=== PATIENT | male | born 1995 | race American Indian/Alaskan Native ===

== ENCOUNTER 2016-09-21 14:12 | Emergency (ER) | payer SELFPAY ==
[2016-09-21 15:17] VITALS: BP 141/86
[2016-09-21 15:48] LABS: Basophils % (Auto) 0.5 % (0.0-1.8); Eosinophils % (Auto) 1.3 % (0.0-4.3); Hematocrit 45.6 % (35.5-45.6); Hemoglobin 14.9 gm/dl (11.8-15.2); Mean Corpuscular HGB Conc 33 % (32-34); Mean Corpuscular Hemoglobin 29 pg (28-32); Mean Corpuscular Volume 89 fl (84-94); Platelet Count 180 K/mm3 (140-440); Red Blood Count 5.14 M/mm3 (3.65-5.03); Red Cell Distribution Width 13.6 % (13.2-15.2); White Blood Count 4.3 K/mm3 (4.5-11.0)
[2016-09-21 16:06] LABS: Creatine Kinase MB 1.5 ng/mL (0.0-4.0)
[2016-09-21 16:13] LABS: Anion Gap 18 mmol/L; BUN/Creatinine Ratio 13.84; Blood Urea Nitrogen 18 mg/dL (9-20); Calcium 9.3 mg/dL (8.4-10.2); Carbon Dioxide 28 mmol/L (22-30); Chloride 100.5 mmol/L (98-107); Creatine Kinase 319 units/L (55-170); Glucose 92 mg/dL (75-100); Lipase 21 units/L (13-60); Sodium 142 mmol/L (137-145)
--- NOTE | 2016-09-21 19:37 | Emergency Department Report ---
ED Chest Pain HPI - General Chief Complaint: Chest Pain Stated Complaint: CHEST PAIN Time Seen by Provider: 09/21/16 15:28 Source: patient, old records reviewed Mode of arrival: Ambulatory Limitations: No Limitations - History of Present Illness Initial Comments: 21-year-old male past medical history hypertension presents with complaint of intermittent left-sided chest pain nonradiating multiple episodes over last several months. Patient states that chest pain is sharp and last for a few seconds to a few minutes at a time, experiences and on near daily basis. No significant correlation with exertion, occasional palpitations, denies any diaphoresis or dyspnea associated with episodes. Denies any nausea vomiting fever chills. States he has mild epigastric pain occasionally. As per patient during clinical interview his father had heart attack in mid 20s. Denies smoking drinking or any drug use. Has not had any cardiology follow-up for this issue, came to ED several months ago complaining of similar chest pain. Onset: during rest, during exertion Pain Location: left chest Severity: moderate Severity scale (0 -10): 7 Quality: aching Consistency: constant Improves With: nothing Worsens With: exertion - Related Data Previous Rx's Medication Instructions Recorded Last Taken Type Amoxicillin [Trimox CAP] 500 mg PO Q8H #21 capsule 03/31/14 Unknown Rx Benzonatate [Tessalon Perles] 100 mg PO Q8HR PRN #21 capsule 03/31/14 Unknown Rx Promethazine [Phenergan] 25 mg PO Q6H PRN #10 tablet 03/31/14 Unknown Rx Ranitidine HCl [Ranitidine] 150 mg PO Q12H #60 tablet 03/31/14 Unknown Rx Ibuprofen [Motrin] 600 mg PO Q8H PRN #60 tablet 02/04/15 Unknown Rx traMADol [Ultram] 50 mg PO Q6HR PRN #14 tablet 02/04/15 Unknown Rx Acetaminophen/Codeine [Tylenol #3] 1 tab PO Q6H PRN #20 tab 08/02/15 Unknown Rx Ibuprofen [Motrin 600 MG tab] 600 mg PO Q8H PRN #30 tablet 08/02/15 Unknown Rx Ondansetron [Zofran Odt] 4 mg PO Q8H PRN #15 tab.rapdis 08/02/15 Unknown Rx Allergies Allergy/AdvReac Type Severity Reaction Status Date / Time No Known Allergies Allergy Verified 08/02/15 01:22 WILL score - Will Score Age > 65: (0) No Aspirin use within the Past 7 Days: (0) No 3 or more CAD Risk Factors: (0) No 2 or more Angina events in past 24 hrs: (1) Yes Known CAD with more than 50% Stenosis: (0) No Elevated Cardiac Markers: (0) No ST Deviation Greater than 0.5mm: (0) No WILL Score: 1 ED Review of Systems ROS: Stated complaint: CHEST PAIN Other details as noted in HPI ED Past Medical Hx - Past Medical History Hx Hypertension: Yes Additional medical history: denies - Surgical History Additional Surgical History: denies - Social History Smoking Status: Never Smoker Substance Use Type: Alcohol - Medications Home Medications: Home Medications Medication Instructions Recorded Confirmed Last Taken Type Amoxicillin [Trimox CAP] 500 mg PO Q8H #21 capsule 03/31/14 Unknown Rx Benzonatate [Tessalon Perles] 100 mg PO Q8HR PRN #21 capsule 03/31/14 Unknown Rx Promethazine [Phenergan] 25 mg PO Q6H PRN #10 tablet 03/31/14 Unknown Rx Ranitidine HCl [Ranitidine] 150 mg PO Q12H #60 tablet 03/31/14 Unknown Rx Ibuprofen [Motrin] 600 mg PO Q8H PRN #60 tablet 02/04/15 Unknown Rx traMADol [Ultram] 50 mg PO Q6HR PRN #14 tablet 02/04/15 Unknown Rx Acetaminophen/Codeine [Tylenol #3] 1 tab PO Q6H PRN #20 tab 08/02/15 Unknown Rx Ibuprofen [Motrin 600 MG tab] 600 mg PO Q8H PRN #30 tablet 08/02/15 Unknown Rx Ondansetron [Zofran Odt] 4 mg PO Q8H PRN #15 tab.rapdis 08/02/15 Unknown Rx ED Physical Exam - General Limitations: No Limitations General appearance: alert, in no apparent distress - Head Head exam: Present: atraumatic, normocephalic - Eye Eye exam: Present: normal appearance, PERRL, EOMI - ENT ENT exam: Present: mucous membranes moist - Neck Neck exam: Present: normal inspection - Respiratory Respiratory exam: Present: normal lung sounds bilaterally. Absent: respiratory distress - Cardiovascular Cardiovascular Exam: Present: regular rate, normal rhythm. Absent: systolic murmur, diastolic murmur, rubs, gallop - GI/Abdominal GI/Abdominal exam: Present: soft, normal bowel sounds - Rectal Rectal exam: Present: deferred - Extremities Exam Extremities exam: Present: normal inspection - Back Exam Back exam: Present: normal inspection - Neurological Exam Neurological exam: Present: alert, oriented X3 - Psychiatric Psychiatric exam: Present: normal affect, normal mood - Skin Skin exam: Present: warm, dry, intact, normal color. Absent: rash ED Course Vital Signs 09/21/16 15:02 Temperature 9.5 F L Pulse Rate 58 L Respiratory 16 Rate Blood Pressure 141/86 O2 Sat by Pulse 98 Oximetry ED Medical Decision Making - Lab Data Result diagrams: 09/21/16 15:40 09/21/16 15:40 - Medical Decision Making A/P: Chest pain 1-troponin negative 2, CK-MB negative, EKG sinus rate of 58 2-give patient follow up with cardiology. I emphasized the importance of cardiology follow-up 3-case discussed with Dr. Tiara Araiza score for PE Clinical Signs and Symptoms of DVTNO+3 PE Is #1 Diagnosis, or Equally LikelyNO+3 Heart Rate > 100NO+1.5 Immobilization at least 3 days, or Surgery in the Previous 4 weeksNO+1.5 Previous, objectively diagnosed PE or DVTNO+1.5 HemoptysisNO+1 Malignancy w/ Treatment within 6 mo, or palliativeNO 0.0points Low risk group: 1.3% chance of PE in an ED population. Another study assigned scores 4 as 'PE Unlikely' and had a 3% incidence of PE. PERC RULE: Age 50NO HR 100NO O2 Sat on Room Air < 95%NO Prior History of Venous ThromboembolismNO Trauma or Surgery within 4 weeksNO HemoptysisNO Exogenous EstrogenNO Unilateral Leg SwellingNO No need for further workup, as <2% chance of PE. If no criteria are positive and clinician's pre-test probability is <15%, PERC Rule criteria are satisfied. HEART score: 2 points Low Score (0-3 points), risk of MACE of 0.9-1.7%. WILL score 1 Critical care attestation.: If time is entered above; I have spent that time in minutes in the direct care of this critically ill patient, excluding procedure time. ED Disposition Clinical Impression: Chest pain Qualifiers: Chest pain type: other chest pain Qualified Code(s): R07.89 - Other chest pain Disposition: DISCHARGED TO HOME OR SELFCARE Is pt being admited?: No Does the pt Need Aspirin: No Condition: Stable Instructions: Angina (ED), Chest Pain (ED) Referrals: PRIMARY CARE,MD [Primary Care Provider] - 3-5 Days JESIKA BEAUCHAMP MD [Staff Physician] - 3-5 Days CARLOS RAMSEY MD [Staff Physician] - 3-5 Days Forms: Work/School Release Form(ED)
[2016-09-21] MEDS ORDERED: BABY ASPIRIN PO ONE (20:57)
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
== END 2016-09-21 21:30 | disposition home or self-care (01) ==
LOC: ED 14:12
DX: R07.89 Other chest pain (principal); I10 Essential (primary) hypertension
CPT/HCPCS: 36415; 71020; 80048; 82550; 82553; 83690; 84484; 85025; 93005; 93010

== ENCOUNTER 2021-08-10 00:49 | Emergency (ER) | payer OTHER ==
[2021-08-10 00:54] VITALS: BP 125/73
[2021-08-10] MEDS ORDERED: IBUPROFEN 600 MG TAB PO ONE (01:34)
[2021-08-10] MEDS ORDERED: ACETAMINOPHEN 500 MG TAB PO ONE (01:34)
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
== END 2021-08-10 03:31 | disposition home or self-care (01) ==
LOC: ED 00:49
DX: S53.402A Unspecified sprain of left elbow, initial encounter (principal); S83.91XA Sprain of unspecified site of right knee, initial encounter; S20.219A Contusion of unspecified front wall of thorax, initial encounter; M62.830 Muscle spasm of back; I10 Essential (primary) hypertension; X58.XXXA Exposure to other specified factors, initial encounter; Y93.89 Activity, other specified; Y92.89 Other specified places as the place of occurrence of the external cause; Y99.8 Other external cause status
CPT/HCPCS: 72072; 99283

== ENCOUNTER 2021-10-17 12:19 | Emergency (ER) | payer SELFPAY ==
[2021-10-17] MEDS ORDERED: SODIUM CHLORIDE 0.9% 1000 ML 1,000 ML IV ONE (12:25)
[2021-10-17] MEDS ORDERED: METOCLOPRAMIDE 10 MG/2 ML INJ IV ONE (12:25)
[2021-10-17 12:33] VITALS: BP 137/77
--- NOTE | 2021-10-17 13:10 | Emergency Department Report ---
ED N/V/D HPI - General Chief complaint: Nausea/Vomiting/Diarrhea Stated complaint: NAUSEA,VOMITTING X1DAY Time Seen by Provider: 10/17/21 12:24 Source: patient Mode of arrival: Stretcher Limitations: No Limitations - History of Present Illness Initial comments: Patient presents with nausea, vomiting, and diarrhea. He came in by ambulance. His symptoms started this morning. He has no hemoptysis. There is no melanotic stool. He states that he had vomited "flecks of blood." He states his stomach just does not feel right. It started this morning. He has not eaten anything that tasted bad or unusual. There is no trauma. Has no travel. Has had no antibiotic exposure. He is not sure what caused it. He has no real pain associated with this. He is trying to drink water and it has not stayed down. - Related Data Previous Rx's Medication Instructions Recorded Last Taken Type raNITIdine HCL [Ranitidine] 150 mg PO Q12H #60 tablet 03/31/14 Unknown Rx Ondansetron [Zofran Odt] 4 mg PO Q8H PRN #15 tab.rapdis 08/02/15 Unknown Rx Promethazine [Phenergan] 25 mg PO Q6H PRN #10 tablet 10/17/21 Unknown Rx Allergies Allergy/AdvReac Type Severity Reaction Status Date / Time No Known Allergies Allergy Verified 08/02/15 01:22 ED Review of Systems ROS: Stated complaint: NAUSEA,VOMITTING X1DAY Other details as noted in HPI Comment: All other systems reviewed and negative Constitutional: denies: fever Eyes: denies: eye pain ENT: denies: throat pain Respiratory: denies: cough Cardiovascular: denies: chest pain Endocrine: denies: unexplained weight loss Gastrointestinal: as per HPI Genitourinary: denies: dysuria Musculoskeletal: denies: back pain Skin: denies: rash Neurological: denies: headache Hematological/Lymphatic: denies: easy bruising ED Past Medical Hx - Past Medical History Hx Hypertension: Yes Additional medical history: denies - Surgical History Additional Surgical History: denies - Family History Family history: hypertension - Social History Smoking Status: Never Smoker Substance Use Type: Alcohol - Medications Home Medications: Home Medications Medication Instructions Recorded Confirmed Last Taken Type raNITIdine HCL [Ranitidine] 150 mg PO Q12H #60 tablet 03/31/14 Unknown Rx Ondansetron [Zofran Odt] 4 mg PO Q8H PRN #15 tab.rapdis 08/02/15 Unknown Rx Promethazine [Phenergan] 25 mg PO Q6H PRN #10 tablet 10/17/21 Unknown Rx ED Physical Exam - General Limitations: No Limitations, Other (Pulse ox noted and normal) General appearance: alert, in no apparent distress - Head Head exam: Present: atraumatic, normocephalic - Eye Eye exam: Present: normal appearance, EOMI - ENT ENT exam: Present: mucous membranes dry, normal external ear exam - Neck Neck exam: Present: normal inspection. Absent: meningismus - Respiratory Respiratory exam: Present: normal lung sounds bilaterally. Absent: respiratory distress - Cardiovascular Cardiovascular Exam: Present: regular rate, normal rhythm - GI/Abdominal GI/Abdominal exam: Present: soft. Absent: tenderness - Extremities Exam Extremities exam: Present: normal capillary refill - Back Exam Back exam: Absent: CVA tenderness (R), CVA tenderness (L) - Neurological Exam Neurological exam: Present: alert, oriented X3, CN II-XII intact. Absent: motor sensory deficit - Psychiatric Psychiatric exam: Present: normal affect, normal mood - Skin Skin exam: Present: warm, dry ED Course Vital Signs 10/17/21 12:32 Temperature 97.9 F Pulse Rate 85 Respiratory 16 Rate Blood Pressure 137/77 [Right] O2 Sat by Pulse 100 Oximetry - Reevaluation(s) Reevaluation #1: 10/17/21 13:08 EMS had been met upon arrival. Labs and medications were ordered. Old records reviewed. Reevaluation #2: 10/17/21 14:27 Labs are noted. Patient was discharged. ED Medical Decision Making - Lab Data Result diagrams: 10/17/21 12:53 10/17/21 12:53 - Medical Decision Making Patient presented by ambulance with GI upset. There is no evidence of acute hepatitis or pancreatitis. He does not have intractable vomiting suggestive of pancreatitis. Patient does not have peritoneal finding. There is no rebound or guarding. He has no leukocytosis. There is no tenderness over McBurney's point to suggest appendicitis. He denies eating anything that would make him think of food poisoning. There is no history of antibiotic or toxic exposure. Patient was treated symptomatically and referred for outpatient evaluation and follow-up. Critical Care Time: No Critical care attestation.: If time is entered above; I have spent that time in minutes in the direct care of this critically ill patient, excluding procedure time. ED Disposition Clinical Impression: Nausea vomiting and diarrhea Disposition: HOME / SELF CARE / HOMELESS Is pt being admited?: No Condition: Stable Instructions: Nausea and Vomiting, Adult, Diarrhea, Adult, [id number] Additional Instructions: Have a bland diet. Drink any water. Return for problems. Follow-up with your regular doctor or the referral doctor for recheck and further evaluation. Prescriptions: Promethazine [Phenergan] 25 mg PO Q6H PRN #10 tablet PRN Reason: Nausea Referrals: PRIMARY CAREMD [Referring] - 3-5 Days MAGALI LIMON MD [Staff Physician] - 3-5 Days
[2021-10-17 13:14] LABS: Hematocrit 44.2 % (35.5-45.6); Hemoglobin 14.4 gm/dl (11.8-15.2); Mean Corpuscular HGB Conc 33 % (32-34); Mean Corpuscular Volume 91 fl (84-94); Platelet Count 219 K/mm3 (140-440); Red Blood Count 4.84 M/mm3 (3.65-5.03); Red Cell Distribution Width 14.2 % (13.2-15.2)
[2021-10-17 13:38] LABS: Alanine Aminotransferase 19 units/L (7-56); Albumin 4.8 g/dL (3.9-5); BUN/Creatinine Ratio 14; Blood Urea Nitrogen 15 mg/dL (9-20); Calcium 9.8 mg/dL (8.4-10.2); Hemolysis Index 7
== END 2021-10-17 15:09 | disposition home or self-care (01) ==
LOC: ED 12:19
DX: R11.2 Nausea with vomiting, unspecified (principal); R19.7 Diarrhea, unspecified; I10 Essential (primary) hypertension; Z72.89 Other problems related to lifestyle; Z79.899 Other long term (current) drug therapy
CPT/HCPCS: 36415; 80053; 83690; 85027; 96361; 96374; 99283; J2765; J7030; Q0162

== ENCOUNTER 2022-05-01 15:03 | Emergency (ER) | payer SELFPAY ==
[2022-05-01 16:00] VITALS: BP 132/88
[2022-05-01] MEDS ORDERED: IBUPROFEN 800 MG TAB PO ONE (16:35)
--- NOTE | 2022-05-01 16:36 | Emergency Department Report ---
ED Lower Extremity HPI - General Chief Complaint: Extremity Injury, Lower Stated Complaint: RIGHT KNEE, LEFT FOOT PAIN Time Seen by Provider: 05/01/22 16:34 Source: patient Mode of arrival: Ambulatory Limitations: No Limitations - History of Present Illness Initial Comments: 27 YO COMES IN WITH 2 COMPLAINTS 1. 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 MD Complaint: knee injury, other -: Gradual, week(s) Improves With: nothing Worsens With: movement - Related Data Previous Rx's Medication Instructions Recorded Last Taken Type Miconazole Nitrate [Athlete's Foot 130 gm TP BID #1 bottle 05/01/22 Unknown Rx [place]] Allergies Allergy/AdvReac Type Severity Reaction Status Date / Time No Known Allergies Allergy Verified 08/02/15 01:22 ED Review of Systems ROS: Stated complaint: RIGHT KNEE, LEFT FOOT PAIN Other details as noted in HPI Comment: All other systems reviewed and negative ED Past Medical Hx - Past Medical History Previous Medical History?: Yes Hx Hypertension: Yes - Surgical History Past Surgical History?: No Additional Surgical History: denies - Family History Family history: no significant - Social History Smoking Status: Never Smoker Substance Use Type: Alcohol - Medications Home Medications: Home Medications Medication Instructions Recorded Confirmed Last Taken Type Miconazole Nitrate [Athlete's Foot 130 gm TP BID #1 bottle 05/01/22 Unknown Rx [place]] ED Physical Exam - General Limitations: No Limitations General appearance: alert, in no apparent distress - Head Head exam: Present: atraumatic, normocephalic - Eye Eye exam: Present: normal appearance - ENT ENT exam: Present: mucous membranes moist - Neck Neck exam: Present: normal inspection - Respiratory Respiratory exam: Present: normal lung sounds bilaterally. Absent: respiratory distress - Cardiovascular Cardiovascular Exam: Present: regular rate, normal rhythm. Absent: systolic murmur, diastolic murmur, rubs, gallop - GI/Abdominal GI/Abdominal exam: Present: soft, normal bowel sounds - Rectal Rectal exam: Present: deferred - Extremities Exam Extremities exam: Present: normal inspection - Expanded Lower Extremity Exam Right Knee exam: Present: tenderness, swelling, effusion. Absent: abrasion, laceration, ecchymosis, deformity, crepidus - Back Exam Back exam: Present: normal inspection - Neurological Exam Neurological exam: Present: alert, oriented X3 - Psychiatric Psychiatric exam: Present: normal affect, normal mood - Skin Skin exam: Present: warm, dry, intact, normal color, other (ATHLETES FOOT BETWEEN TOES LEFT FOOT). Absent: rash ED Course Vital Signs 05/01/22 15:59 Temperature 98.2 F Pulse Rate 62 Respiratory 20 Rate Blood Pressure 132/88 [Right] O2 Sat by Pulse 100 Oximetry ED Lower Extremity MDM - Radiology Data Radiology results: report reviewed, image reviewed SEE IMAGE - Medical Decision Making Vital Signs 05/01/22 15:59 Temperature 98.2 F Pulse Rate 62 Respiratory 20 Rate Blood Pressure 132/88 [Right] O2 Sat by Pulse 100 Oximetry XRAY NOTED MEDICATED FOR PAIN RICE KNEE IMMOB / CRUTCHES NEUROVASC INTACT BILATERA WALKING WITH LIMP OF RIGHT LEG DC HOME WITH DC PLAN OF CARE AND ORTHO FOLLOW UP. PT VERBALIZES UNDERSTANDING OF PLAN OF CARE. - Differential Diagnosis RO FX/ SOFT TISSUE INJURY KNEE Critical care attestation.: If time is entered above; I have spent that time in minutes in the direct care of this critically ill patient, excluding procedure time. ED Disposition Clinical Impression: Athletes foot, Knee effusion, right Disposition: 01 HOME / SELF CARE / HOMELESS Is pt being admited?: No Does the pt Need Aspirin: No Condition: Stable Instructions: Knee Effusion, [id number], Athlete's Foot, [id number] Additional Instructions: REST ICE ELEVATED THE RIGHT LEG MOTRIN OR TYLENOL FOR PAIN MED ORDERED TODAY FOR FOOT FOLLOW UP WITH PCP FOR FOOT REFERRAL BELOW FOLLOW UP WITH ORTHO FOR KNEE REFERRAL BELOW USE KNEE IMMOBILIZER AND CRUTCHES WE DISCUSSED UNTIL SEEN BY ORTHO Referrals: SAUMYA JOHNSON MD [Staff Physician] - 3-5 Days Forms: Work/School Release Form(ED) Time of Disposition: 17:23
--- NOTE | 2022-05-01 17:29 | XRay Report ---
RIGHT KNEE, 3 VIEWS INDICATION / CLINICAL INFORMATION: KNEE PAIN. Patient felt something pop and is unable to stand without pain COMPARISON: None available. FINDINGS: No visible fracture or malalignment. No significant degenerative change. There is a small suprapatell ar effusion present. IMPRESSION: Small suprapatellar joint effusion. No acute osseous abnormality. Signer Name: Zoey Ortiz MD Signed: 05/01/2022 5:24 PM Workstation Name: [id number]
== END 2022-05-01 18:15 | disposition home or self-care (01) ==
LOC: ED 15:03
DX: B35.3 Tinea pedis (principal); M25.461 Effusion, right knee; I10 Essential (primary) hypertension; Z72.89 Other problems related to lifestyle; Z79.899 Other long term (current) drug therapy
CPT/HCPCS: 99283